=== PATIENT | female | born 1960 ===

== ENCOUNTER 2025-01-11 03:32 | Outpatient (CLI) | payer MEDICAID, SELFPAY ==
--- NOTE | 2025-01-11 12:30 | DI.US_ITS ---
APPROVED REPORT EXAM: Comprehensive 2D, Doppler, and color-flow Echocardiogram Patient Location: Out-Patient Paving Block Cutter: Ricky Chaudhry RDCS (AE) Indications: Murmur Other Information Study Quality: Adequate Conclusion Normal left ventricular wall thickness and chamber size. Ejection fraction is 55 to 60%. Wall motion is normal Normal right ventricular size and function Both atria are normal in size There is no structural or hemodynamically significant valvular disease Wall motion Left Ventricle The left ventricle is normal size. Left ventricular systolic function is normal. The left ventricular ejection fraction is within the normal range. There is normal left ventricular wall thickness. There is normal LV segmental wall motion. The left ventricular diastolic function is normal. There is no v entricular septal defect visualized. LVEF is 55-60%. Right Ventricle The right ventricle is normal size. The right ventricular systolic function is normal. Atria The left atrium size is normal. The right atrium size is normal. The interatrial septum is intact with no evidence for an atrial septal defect. Aortic Valve The aortic valve is normal in structure. Aortic valve is trileaflet. There is no aortic valvular stenosis. No aortic regurgitation is present. Mitral Valve The mitral valve is normal in structure. No evidence of mitral valve stenosis. There is no mitral valve regurgitation noted. Tricuspid Valve The tricuspid valve is normal in structure. There is no tricuspid valve stenosis. Trace tricuspid regurgitation. Pulmonic Valve The pulmonary valve is normal in structure. There is no pulmonic valvular stenosis. There is no pulmonic valvular regurgitation. Great Vessels The aortic root is normal in size. The ascending aorta is normal in size. Aortic arch is normal in caliber. Pericardium There is no pericardial effusion. 2D Dimensions IVSD d PLAX 0.73 cm F: 0.6-1.0 Ao Root d 2.75 cm F: 2.7 - 3.3 LVPW d PLAX 0.67 cm F: 0.6 - 1.0 LVID d PLAX 5.76 cm F: 3.8 - 5.2 LVDs 3.90 cm F: 2.2 - 3.5 LV EF Teichholz 59.8 % FS 32.32 % LV EDV (Teich) 164.2 mL LV ESV (Teich) 66.0 mL Stroke Vol Index (Teich) 59.20 M-Mode TAPSE 2.33 cm (M/F) >1.7 Auto EF LV EDV A4C 81.7 mL LV EDV A2C 101.7 mL LV EDV BP 90.5 mL LV ESV A4C 36.9 mL LV ESV A2C 42.6 mL LV ESV BP 39.5 mL LVEF(%) A4C 54.8 % LVEF(%) A2C 58.1 % LVEF(%) BP 56.3 % LV SV A4C 44.7 ml LV SV A2C 59.1 ml LV SV BP 51.0 ml LV CO A4C 2.8 L/min LV CO A2C 3.7 L/min LV CO BP 3.2 L/min HR A4C 61.54 BPM HR A2C 63.05 BPM LV EDV Index (BP) LA Volume LA Length A4C 4.6 cm LA Length A2C 3.9 cm LA Area A4C s 7.96 cm2 LA Area A2C s 8.92 cm2 LA Vol A4C A-L 11.64 mL LA Vol A2C A-L 17.15 mL LA Vol Biplane A-L 15.3 mL LA Vol/BSA A4C A-L LA Vol/BSA A2C A-L LA Vol/BSA BP A-L 9.2 mL/m2 LA Vol A4C MOD 10.5 mL LA Vol A2C MOD 16.0 mL LA Vol BP MOD 13.7 mL RA Volume RA Area A4C 6.7 cm2 RA ESV A4C (A-L) 11.3mL RA Vol/BSA A4C A-L RA Length A4C 3.4 cm RA ESV A4C (MOD) 10.4mL LV Diastology MV E' medial 0.082 (>0.07 m/s) MV E Vmax 0.66 (0.4-1.3 m/s) MV E/E' MED 8.00 (<14) MV A Vmax 0.90 (0.4-1.3 m/s) MV E' lateral 0.090 (>0.1 m/s) E/A Ratio 0.7 MV E/E' LAT 7.32 (<14) MV E' Average 0.086 m/s MV E/E'(average) 7.65 Aortic Valve AoV Vmax 1.18 m/s LVOT Vmax 1.09 m/s AoV Peak Grad 5.6 mmHg LVOT Peak Grad 4.8 mmHg AoV Area (Vmax) 2.78 cm2 LVOT VTI 0.243 m AoV VTI 0.267 m LVOT Mean Grad 2.4 mmHg AoV Mean [place]. 0.83 m/s LVOT SV 73.23 mL AoV Mean Grad 3.2 mmHg LVOT Diam s 1.95 cm AoV Area (VTI) 2.74 cm2 AV Regurg Peak Gr. 5.60 mmHg Velocity Ratio 0.92 Mitral Valve MV DT 226 (160-240 msec) Pulmonary Valve RVOT Vmax 0.75 m/s RVOT Peak Gr. 2.2 mmHg RVOT VTI 0.146 m RVOT Mean Gr. 1.4 mmHg
== END 2025-01-11 03:52 ==
LOC: DI 03:32
PROVIDERS: Visit Provider Internal Medicine Cardiovascular Disease
DX: R01.1 Cardiac murmur, unspecified (principal)
CPT/HCPCS: 93306